=== PATIENT | male | born 1935 | race Caucasian/White ===

== ENCOUNTER 2019-05-26 12:32 | Inpatient (IN) | payer OTHER ==
[2019-05-26 12:54] LABS: ADD MAN DIFF? NO
[2019-05-26] MEDS: morphine 4 MG/ML VIAL IV (12:55)
[2019-05-26] MEDS: ONDANSETRON 4 MG INJ IV (12:55)
[2019-05-26] MEDS: SOD CHLORIDE 0.9% 500 ML IV (12:57)
[2019-05-26 13:04] LABS: BASOPHILS % 0.5 % (0.0-2.0); EOSINOPHILS # 0.1 10^3/ul (0.0-0.5); EOSINOPHILS % 1.7 % (0.0-7.0); HEMOGLOBIN 11.9 g/dl (14.0-18.0); MEAN CORPUSCULAR HGB CONC 31.3 g/dl (32.0-37.0); MEAN CORPUSCULAR VOLUME 92.5 fl (82.0-101.0); MEAN PLATELET VOLUME 10.7 fl (7.4-10.4); MONOCYTE # 0.4 10^3/ul (0.3-0.9); MONOCYTES % 6.3 % (0.0-11.0); NEUTROPHIL # 4.4 10^3/ul (1.6-7.5); NEUTROPHILS % 74.2 % (39.0-77.0); PLATELET COUNT 148 10^3/UL (140-415); RED BLOOD COUNT 4.11 10^6/ul (4.70-6.10); RED CELL DISTRIBUTION WIDTH 14.4 % (11.5-14.5)
[2019-05-26 13:04] LABS: WHITE BLOOD COUNT 5.9 10^3/ul (4.8-10.8)
[2019-05-26 13:15] LABS: ANION GAP 7 (5-13); BLOOD UREA NITROGEN 11 mg/dl (7-20); CALCIUM 9.3 mg/dl (8.4-10.2); CARBON DIOXIDE 31 mmol/L (21-31); CHLORIDE 103 mmol/L (97-110); CREATININE 0.68 mg/dl (0.61-1.24); GLUCOSE 110 mg/dl (70-220); POTASSIUM 4.2 mmol/L (3.5-5.1); SODIUM 141 mmol/L (135-144)
[2019-05-26 13:17] LABS: INR 1.17; PT RATIO 1.2
[2019-05-26 13:18] LABS: PARTIAL THROMBOPLASTIN TIME 35.9 Sec (23.0-35.0)
[2019-05-26 13:27] LABS: TROPONIN-I < 0.012 ng/ml (0.000-0.120)
[2019-05-26] MEDS: niCARdipine-NS 0.1MG/ML DRIP 200 ML IV (15:01)
[2019-05-26] MEDS ORDERED: HYDROCODONE/APAP (5/325) TAB PO (16:30)
[2019-05-26] MEDS ORDERED: hydrALAzine 20 MG INJ IV (16:30)
[2019-05-26] MEDS ORDERED: NACL 0.9% 3 ML SYG IV (16:30)
[2019-05-26] MEDS ORDERED: ONDANSETRON 4 MG INJ IV (16:30)
[2019-05-26 17:20] LABS: HIV 1&2 ANTIBODY REACTIVE (NEGATIVE)
[2019-05-26] MEDS: SOD CHLORIDE 0.9% 1,000 ML IV (17:24)
[2019-05-26] MEDS: MIRTAZAPINE 15 MG TAB PO (21:00)
[2019-05-26] MEDS: ROSUVASTATIN CALCIUM 40 MG TABLET PO (21:00)
[2019-05-26] MEDS ORDERED: MARAVIROC 300 MG PO (21:00)
[2019-05-26] MEDS: CALCIUM/VITAMIN D (500/200) TAB PO (21:00)
[2019-05-26] MEDS: HYDROCODONE/APAP (7.5/325) TAB PO (23:51)
[2019-05-27 05:24] LABS: ADD MAN DIFF? NO
[2019-05-27 05:34] LABS: WHITE BLOOD COUNT 4.7 10^3/ul (4.8-10.8)
[2019-05-27 05:34] LABS: BASOPHILS % 0.6 % (0.0-2.0); EOSINOPHILS # 0.2 10^3/ul (0.0-0.5); EOSINOPHILS % 3.2 % (0.0-7.0); HEMATOCRIT 34.4 % (42.0-52.0); HEMOGLOBIN 10.7 g/dl (14.0-18.0); LYMPHOCYTES # 1.2 10^3/ul (0.8-2.9); LYMPHOCYTES % 25.6 % (15.0-51.0); MEAN CORPUSCULAR HEMOGLOBIN 28.7 pg (29.0-33.0); MEAN CORPUSCULAR HGB CONC 31.1 g/dl (32.0-37.0); MEAN CORPUSCULAR VOLUME 92.2 fl (82.0-101.0); MEAN PLATELET VOLUME 11.1 fl (7.4-10.4); MONOCYTE # 0.4 10^3/ul (0.3-0.9); MONOCYTES % 8.3 % (0.0-11.0); NEUTROPHIL # 2.9 10^3/ul (1.6-7.5); NEUTROPHILS % 61.9 % (39.0-77.0); PLATELET COUNT 122 10^3/UL (140-415); RED BLOOD COUNT 3.73 10^6/ul (4.70-6.10); RED CELL DISTRIBUTION WIDTH 14.6 % (11.5-14.5)
[2019-05-27] MEDS: PANTOPRAZOLE (EC) 40 MG TAB PO (05:51)
[2019-05-27] MEDS: SOD CHLORIDE 0.9% 1,000 ML IV ×2 (05:52→17:27)
[2019-05-27 05:58] LABS: ALANINE AMINOTRANSFERASE 25 IU/L (13-69); ALBUMIN 3.3 g/dl (3.3-4.9); ALBUMIN/GLOBULIN RATIO 1.17; ALKALINE PHOSPHATASE 53 IU/L (42-121); ANION GAP 8 (5-13); ASPARTATE AMINO TRANSFERASE 33 IU/L (15-46); BILIRUBIN,INDIRECT 0.6 mg/dl (0-1.1); BILIRUBIN,TOTAL 0.6 mg/dl (0.2-1.3); BLOOD UREA NITROGEN 11 mg/dl (7-20); CALCIUM 8.4 mg/dl (8.4-10.2); CARBON DIOXIDE 28 mmol/L (21-31); CHLORIDE 104 mmol/L (97-110); CHOL/HDL RATIO 3.1 RATIO; CHOLESTEROL 108 mg/dl (100-200); CREATININE 0.66 mg/dl (0.61-1.24); GLUCOSE 85 mg/dl (70-220); HDL CHOLESTEROL 34 mg/dl (31-75); LDL CHOLESTEROL,CALCULATED 58 mg/dl; MAGNESIUM 1.8 mg/dl (1.7-2.5); PHOSPHORUS 3.4 mg/dl (2.5-4.9); POTASSIUM 3.9 mmol/L (3.5-5.1); SODIUM 140 mmol/L (135-144); TOTAL PROTEIN 6.1 g/dl (6.1-8.1); TRIGLYCERIDES 78 mg/dl (0-149)
[2019-05-27 06:25] LABS: THYROID STIMULATING HORMONE 0.321 MIU/L (0.465-4.680)
[2019-05-27 06:51] LABS: HEMOGLOBIN A1C 5.5 % (0-5.9)
[2019-05-27] MEDS ORDERED: NON-FORMULARY/PATIENT OWN MED (Dolutegravir/Rilpivirine (Juluca 50-25 mg Tablet) 1 EACH) PO (09:00)
[2019-05-27] MEDS: CHOLECALCIFEROL 1,000 UNIT TAB PO (09:00)
[2019-05-27] MEDS: MULTIVITAMINS THERAPEUTIC TAB PO (09:00)
[2019-05-27] MEDS: CALCIUM/VITAMIN D (500/200) TAB PO ×2 (09:00→20:53)
[2019-05-27] MEDS: ACYCLOVIR 400 MG TAB PO (09:00)
[2019-05-27] MEDS: HYDROmorphONE 0.5 MG/0.5 ML SYG IV ×2 (12:51→23:22)
[2019-05-27] MEDS: MIRTAZAPINE 15 MG TAB PO (20:53)
[2019-05-27] MEDS: ROSUVASTATIN CALCIUM 40 MG TABLET PO (20:53)
[2019-05-27 21:31] LABS: ANION GAP 8 (5-13); BLOOD UREA NITROGEN 16 mg/dl (7-20); CALCIUM 8.4 mg/dl (8.4-10.2); CARBON DIOXIDE 30 mmol/L (21-31); CHLORIDE 99 mmol/L (97-110); CREATININE 0.72 mg/dl (0.61-1.24); GLUCOSE 166 mg/dl (70-220); MAGNESIUM 1.8 mg/dl (1.7-2.5); POTASSIUM 4.3 mmol/L (3.5-5.1); SODIUM 137 mmol/L (135-144)
[2019-05-27] MEDS: HYDROCODONE/APAP (7.5/325) TAB PO (21:36)
[2019-05-28 05:39] LABS: ADD MAN DIFF? NO
[2019-05-28 05:45] LABS: WHITE BLOOD COUNT 5.6 10^3/ul (4.8-10.8)
[2019-05-28 05:45] LABS: BASOPHILS % 0.4 % (0.0-2.0); EOSINOPHILS # 0.2 10^3/ul (0.0-0.5); HEMATOCRIT 34.4 % (42.0-52.0); HEMOGLOBIN 10.9 g/dl (14.0-18.0); LYMPHOCYTES % 18.5 % (15.0-51.0); MEAN CORPUSCULAR HEMOGLOBIN 29.2 pg (29.0-33.0); MEAN CORPUSCULAR HGB CONC 31.7 g/dl (32.0-37.0); MEAN CORPUSCULAR VOLUME 92.2 fl (82.0-101.0); MEAN PLATELET VOLUME 10.7 fl (7.4-10.4); MONOCYTE # 0.6 10^3/ul (0.3-0.9); MONOCYTES % 10.4 % (0.0-11.0); NEUTROPHIL # 3.8 10^3/ul (1.6-7.5); NEUTROPHILS % 67.5 % (39.0-77.0); PLATELET COUNT 126 10^3/UL (140-415); POSITIVE DIFF @See below; RED BLOOD COUNT 3.73 10^6/ul (4.70-6.10); RED CELL DISTRIBUTION WIDTH 14.1 % (11.5-14.5)
[2019-05-28] MEDS: SOD CHLORIDE 0.9% 1,000 ML IV (05:58)
[2019-05-28] MEDS: PANTOPRAZOLE (EC) 40 MG TAB PO (05:59)
[2019-05-28 06:04] LABS: INR 1.28; PROTIME 16.1 Sec (11.9-14.9); PT RATIO 1.3
[2019-05-28 06:05] LABS: PARTIAL THROMBOPLASTIN TIME 39.8 Sec (23.0-35.0)
[2019-05-28 06:22] LABS: ANION GAP 7 (5-13); BLOOD UREA NITROGEN 19 mg/dl (7-20); CALCIUM 8.2 mg/dl (8.4-10.2); CARBON DIOXIDE 32 mmol/L (21-31); CHLORIDE 100 mmol/L (97-110); CREATININE 0.79 mg/dl (0.61-1.24); GLUCOSE 118 mg/dl (70-220); MAGNESIUM 1.8 mg/dl (1.7-2.5); POTASSIUM 4.3 mmol/L (3.5-5.1); SODIUM 139 mmol/L (135-144)
[2019-05-28] MEDS: HYDROCODONE/APAP (7.5/325) TAB PO (08:12)
[2019-05-28] MEDS: CALCIUM/VITAMIN D (500/200) TAB PO ×2 (08:44→21:00)
[2019-05-28] MEDS: CHOLECALCIFEROL 1,000 UNIT TAB PO (08:44)
[2019-05-28] MEDS: MULTIVITAMINS THERAPEUTIC TAB PO (08:44)
[2019-05-28] MEDS: ACYCLOVIR 400 MG TAB PO (08:44)
[2019-05-28] MEDS ORDERED: TRANEXAMIC ACID 1GM/100ML(PMX) 200 ML (13:58)
[2019-05-28 14:20] LABS: LYMPHOCYTE - % CD4 (HELPER) 36 % (30-61); LYMPHOCYTE - %CD8 (SUPPRESSOR) 49 % (12-42); LYMPHOCYTE - ABSOLUTE 1150 cells/uL (850-3900); LYMPHOCYTE - ABSOLUTE CD4 417 cells/uL (490-1740); LYMPHOCYTE - ABSOLUTE CD8 562 cells/uL (180-1170); LYMPHOCYTE - CD4/CD8 RATIO 0.74 (0.86-5.00)
[2019-05-28] MEDS ORDERED: PROPOFOL 100 ML (14:32)
[2019-05-28] MEDS ORDERED: CEFAZOLIN 1 GM INJ (14:32)
[2019-05-28] MEDS ORDERED: FENTAnyl 50 MCG/ML VIAL (14:32)
[2019-05-28] MEDS ORDERED: PHENYLephrine (100 MCG/ML) 10ML SYG (14:32)
[2019-05-28 16:06] LABS: IMMEDIATE SPIN CROSSMATCH 1 3
[2019-05-28] MEDS ORDERED: METOCLOPRAMIDE 10 MG INJ (16:27)
[2019-05-28] MEDS ORDERED: DEXAMETHASONE 4 MG/ML 5 ML INJ (16:27)
[2019-05-28] MEDS ORDERED: ONDANSETRON 4 MG INJ (16:27)
[2019-05-28] MEDS ORDERED: ROPIVACAINE 0.5 % 30 ML VIAL (16:39)
[2019-05-28] MEDS ORDERED: hydrALAzine 20 MG INJ (16:54)
[2019-05-28] MEDS ORDERED: FUROSEMIDE 20 MG INJ (17:45)
[2019-05-28] MEDS ORDERED: NALBUPHINE HCL (10 MG/1 ML) INJ IV (18:30)
[2019-05-28] MEDS ORDERED: HYDROCODONE/APAP (5/325) TAB PO (18:30)
[2019-05-28] MEDS ORDERED: DIPHENHYDRAMINE 50 MG INJ IV ×3 (18:30)
[2019-05-28] MEDS ORDERED: IPRATROPIUM (NEB) 0.5 MG/2.5 ML AMP HHN (18:30)
[2019-05-28] MEDS ORDERED: METOCLOPRAMIDE 10 MG INJ IV (18:30)
[2019-05-28] MEDS ORDERED: ALBUTEROL 0.083% (NEB) 2.5 MG/3 ML AMP HHN (18:30)
[2019-05-28] MEDS ORDERED: LABETALOL HCL 20MG INJ IV (18:30)
[2019-05-28] MEDS ORDERED: hydrALAzine 20 MG INJ IV (18:30)
[2019-05-28] MEDS ORDERED: NALOXONE (0.4 MG/ML) INJ IV ×2 (18:30→19:00)
[2019-05-28] MEDS ORDERED: ALBUMIN HUMAN 5% 250 ML IV (18:30)
[2019-05-28] MEDS ORDERED: ACETAMINOPHEN 500 MG TAB PO (18:30)
[2019-05-28] MEDS ORDERED: HYDROmorphONE 0.5 MG/0.5 ML SYG IV ×5 (18:30)
[2019-05-28] MEDS ORDERED: FENTAnyl 50 MCG/ML VIAL IV ×3 (18:30)
[2019-05-28] MEDS ORDERED: MEPERIDINE 25 MG INJ IV (18:30)
[2019-05-28] MEDS ORDERED: EPHEDrine 25 MG/5 ML SYG IV (18:30)
[2019-05-28] MEDS ORDERED: ONDANSETRON 4 MG INJ IV ×2 (18:30)
[2019-05-28] MEDS ORDERED: MEPERIDINE 25 MG INJ (18:40)
[2019-05-28] MEDS: DOCUSATE SODIUM 100 MG CAP PO (19:00)
[2019-05-28] MEDS ORDERED: BETHANECHOL 25 MG TAB PO (19:00)
[2019-05-28] MEDS ORDERED: NACL 0.9% 3 ML SYG IV (19:00)
[2019-05-28] MEDS ORDERED: BISACODYL 10 MG SUPP PR (19:00)
[2019-05-28] MEDS ORDERED: HYDROmorphONE 1 MG/ML SYG IV (19:00)
[2019-05-28] MEDS ORDERED: NA PHOSPHATE/BIPHOS 133 ML ENEMA PR (19:00)
[2019-05-28] MEDS ORDERED: oxyCODONE 5 MG TAB PO (19:00)
[2019-05-28] MEDS: MEPERIDINE 25 MG INJ IV (19:18)
[2019-05-28] MEDS: LACTATED RINGER'S 1,000 ML IV (19:20)
[2019-05-28] MEDS: ROSUVASTATIN CALCIUM 40 MG TABLET PO (21:00)
[2019-05-28] MEDS: MIRTAZAPINE 15 MG TAB PO (21:00)
[2019-05-28] MEDS: GABAPENTIN 300 MG CAP PO (21:00)
[2019-05-28] MEDS: ACETAMINOPHEN 500 MG TAB PO (22:00)
[2019-05-28] MEDS: CEFAZOLIN 2 GM/50 ML (PMX) 50 ML IVPB (22:02)
[2019-05-28] MEDS: ACETAMINOPHEN 650 MG SUPP PR (22:14)
[2019-05-29] MEDS: LACTATED RINGER'S 1,000 ML IV ×2 (03:59→14:42)
[2019-05-29] MEDS: ACETAMINOPHEN 650 MG SUPP PR ×2 (04:34→10:02)
[2019-05-29 04:57] LABS: ADD MAN DIFF? NO
[2019-05-29 05:08] LABS: ABNORMAL IP MESSAGE 1; HEMATOCRIT 30.2 % (42.0-52.0); HEMOGLOBIN 9.7 g/dl (14.0-18.0); LYMPHOCYTES # 0.3 10^3/ul (0.8-2.9); LYMPHOCYTES % 6.8 % (15.0-51.0); MEAN CORPUSCULAR HGB CONC 32.1 g/dl (32.0-37.0); MEAN CORPUSCULAR VOLUME 93.5 fl (82.0-101.0); MEAN PLATELET VOLUME 11.6 fl (7.4-10.4); MONOCYTE # 0.1 10^3/ul (0.3-0.9); MONOCYTES % 2.8 % (0.0-11.0); NEUTROPHIL # 4.1 10^3/ul (1.6-7.5); PLATELET COUNT 96 10^3/UL (140-415); POSITIVE DIFF @See below; RED BLOOD COUNT 3.23 10^6/ul (4.70-6.10)
[2019-05-29 05:08] LABS: WHITE BLOOD COUNT 4.6 10^3/ul (4.8-10.8)
[2019-05-29 05:22] LABS: INR 1.35; PROTIME 16.8 Sec (11.9-14.9); PT RATIO 1.3
[2019-05-29 05:31] LABS: ANION GAP 4 (5-13); BLOOD UREA NITROGEN 13 mg/dl (7-20); CALCIUM 7.2 mg/dl (8.4-10.2); CARBON DIOXIDE 29 mmol/L (21-31); CHLORIDE 108 mmol/L (97-110); CREATININE 0.56 mg/dl (0.61-1.24); GLUCOSE 146 mg/dl (70-220); SODIUM 141 mmol/L (135-144)
[2019-05-29] MEDS: PANTOPRAZOLE (EC) 40 MG TAB PO (06:00)
[2019-05-29] MEDS: ACETAMINOPHEN 500 MG TAB PO ×3 (06:00→22:00)
[2019-05-29] MEDS: CEFAZOLIN 2 GM/50 ML (PMX) 50 ML IVPB ×2 (06:22→14:55)
[2019-05-29] MEDS: DOCUSATE SODIUM 100 MG CAP PO ×2 (09:00→21:04)
[2019-05-29] MEDS: CHOLECALCIFEROL 1,000 UNIT TAB PO (09:00)
[2019-05-29] MEDS: CALCIUM/VITAMIN D (500/200) TAB PO ×2 (09:00→21:04)
[2019-05-29] MEDS: ACYCLOVIR 400 MG TAB PO (09:00)
[2019-05-29] MEDS: MULTIVITAMINS THERAPEUTIC TAB PO (09:00)
[2019-05-29] MEDS: MAGNESIUM SULFATE 2 GM/50 ML 50 ML IVPB (09:47)
[2019-05-29] MEDS ORDERED: ONDANSETRON 4 MG INJ IV (19:00)
[2019-05-29] MEDS: ROSUVASTATIN CALCIUM 40 MG TABLET PO (21:04)
[2019-05-29] MEDS: MIRTAZAPINE 15 MG TAB PO (21:04)
[2019-05-29] MEDS: GABAPENTIN 300 MG CAP PO (21:04)
[2019-05-30] MEDS: LACTATED RINGER'S 1,000 ML IV ×2 (03:03→10:42)
[2019-05-30] MEDS: PANTOPRAZOLE (EC) 40 MG TAB PO (05:40)
[2019-05-30] MEDS: ACETAMINOPHEN 500 MG TAB PO ×3 (05:42→22:16)
[2019-05-30 06:35] LABS: ADD MAN DIFF? NO
[2019-05-30 06:47] LABS: ABNORMAL IP MESSAGE 1; BASOPHILS % 0.2 % (0.0-2.0); EOSINOPHILS % 0.2 % (0.0-7.0); HEMATOCRIT 29.2 % (42.0-52.0); HEMOGLOBIN 9.3 g/dl (14.0-18.0); LYMPHOCYTES # 0.8 10^3/ul (0.8-2.9); LYMPHOCYTES % 16.8 % (15.0-51.0); MEAN CORPUSCULAR HEMOGLOBIN 29.3 pg (29.0-33.0); MEAN CORPUSCULAR HGB CONC 31.8 g/dl (32.0-37.0); MEAN CORPUSCULAR VOLUME 92.1 fl (82.0-101.0); MEAN PLATELET VOLUME 11.7 fl (7.4-10.4); MONOCYTE # 0.4 10^3/ul (0.3-0.9); MONOCYTES % 8.5 % (0.0-11.0); NEUTROPHIL # 3.7 10^3/ul (1.6-7.5); NEUTROPHILS % 73.9 % (39.0-77.0); PLATELET COUNT 96 10^3/UL (140-415); POSITIVE DIFF @See below; RED BLOOD COUNT 3.17 10^6/ul (4.70-6.10); RED CELL DISTRIBUTION WIDTH 14.2 % (11.5-14.5)
[2019-05-30 07:03] LABS: ANION GAP 2 (5-13); BLOOD UREA NITROGEN 15 mg/dl (7-20); CALCIUM 7.7 mg/dl (8.4-10.2); CARBON DIOXIDE 32 mmol/L (21-31); CHLORIDE 107 mmol/L (97-110); CREATININE 0.54 mg/dl (0.61-1.24); GLUCOSE 130 mg/dl (70-220); SODIUM 141 mmol/L (135-144)
[2019-05-30 07:06] LABS: INR 1.36; PROTIME 16.9 Sec (11.9-14.9); PT RATIO 1.3
[2019-05-30 07:24] LABS: PHOSPHORUS 1.5 mg/dl (2.5-4.9)
[2019-05-30 07:24] LABS: MAGNESIUM 2.3 mg/dl (1.7-2.5)
[2019-05-30] MEDS: ACETAMINOPHEN 325 MG TAB PO (08:42)
[2019-05-30] MEDS: DOCUSATE SODIUM 100 MG CAP PO ×2 (08:43→21:13)
[2019-05-30] MEDS: ACYCLOVIR 400 MG TAB PO (08:43)
[2019-05-30] MEDS: MAGNESIUM HYDROXIDE 30ML CUP PO (08:43)
[2019-05-30] MEDS: SENNA/DOCUSATE NA (8.6MG/50MG) TAB PO (08:43)
[2019-05-30] MEDS: MULTIVITAMINS THERAPEUTIC TAB PO (08:43)
[2019-05-30] MEDS: CHOLECALCIFEROL 1,000 UNIT TAB PO (08:43)
[2019-05-30] MEDS: CALCIUM/VITAMIN D (500/200) TAB PO ×2 (08:43→21:14)
[2019-05-30] MEDS: PATIENT'S OWN MEDICATION PO ×3 (08:44→21:12)
[2019-05-30] MEDS: SOD CHLORIDE 0.45% 1,000 ML IV (13:04)
[2019-05-30] MEDS: SOD CHLORIDE 0.9% IVPB (15:39)
[2019-05-30] MEDS: SODIUM PHOSPHATE IVPB (15:39)
[2019-05-30] MEDS: ROSUVASTATIN CALCIUM 40 MG TABLET PO (21:13)
[2019-05-30] MEDS: MIRTAZAPINE 15 MG TAB PO (21:14)
[2019-05-30] MEDS: GABAPENTIN 300 MG CAP PO (21:17)
[2019-05-30] MEDS: DIAZEPAM 5 MG TAB PO (23:11)
[2019-05-31] MEDS: oxyCODONE 5 MG TAB PO ×3 (01:00→14:29)
[2019-05-31] MEDS: HYDROmorphONE 0.5 MG/0.5 ML SYG IV ×2 (02:56→22:12)
[2019-05-31] MEDS: SOD CHLORIDE 0.45% 1,000 ML IV ×2 (05:10→14:17)
[2019-05-31] MEDS: ACETAMINOPHEN 500 MG TAB PO ×3 (06:00→23:08)
[2019-05-31 06:56] LABS: ADD MAN DIFF? NO
[2019-05-31 06:58] LABS: WHITE BLOOD COUNT 4.6 10^3/ul (4.8-10.8)
[2019-05-31 06:58] LABS: ABNORMAL IP MESSAGE 1; BASOPHILS % 0.4 % (0.0-2.0); EOSINOPHILS # 0.1 10^3/ul (0.0-0.5); EOSINOPHILS % 2.2 % (0.0-7.0); HEMATOCRIT 28.8 % (42.0-52.0); HEMOGLOBIN 9.3 g/dl (14.0-18.0); LYMPHOCYTES # 1.3 10^3/ul (0.8-2.9); LYMPHOCYTES % 27.9 % (15.0-51.0); MEAN CORPUSCULAR HEMOGLOBIN 30.1 pg (29.0-33.0); MEAN CORPUSCULAR HGB CONC 32.3 g/dl (32.0-37.0); MEAN CORPUSCULAR VOLUME 93.2 fl (82.0-101.0); MEAN PLATELET VOLUME 11.4 fl (7.4-10.4); MONOCYTE # 0.4 10^3/ul (0.3-0.9); MONOCYTES % 7.8 % (0.0-11.0); NEUTROPHIL # 2.9 10^3/ul (1.6-7.5); NEUTROPHILS % 61.5 % (39.0-77.0); PLATELET COUNT 90 10^3/UL (140-415); POSITIVE DIFF @See below; RED BLOOD COUNT 3.09 10^6/ul (4.70-6.10); RED CELL DISTRIBUTION WIDTH 14.3 % (11.5-14.5)
[2019-05-31 07:20] LABS: INR 1.24; PROTIME 15.7 Sec (11.9-14.9); PT RATIO 1.2
[2019-05-31 07:24] LABS: ANION GAP 4 (5-13); BLOOD UREA NITROGEN 13 mg/dl (7-20); CALCIUM 7.7 mg/dl (8.4-10.2); CARBON DIOXIDE 32 mmol/L (21-31); CHLORIDE 106 mmol/L (97-110); CREATININE 0.54 mg/dl (0.61-1.24); GLUCOSE 107 mg/dl (70-220); POTASSIUM 3.8 mmol/L (3.5-5.1); SODIUM 142 mmol/L (135-144)
[2019-05-31 07:30] LABS: PHOSPHORUS 2.6 mg/dl (2.5-4.9)
[2019-05-31 07:30] LABS: MAGNESIUM 1.9 mg/dl (1.7-2.5)
[2019-05-31] MEDS: ACYCLOVIR 400 MG TAB PO (08:36)
[2019-05-31] MEDS: FAMOTIDINE 20 MG TAB PO (08:36)
[2019-05-31] MEDS: DOCUSATE SODIUM 100 MG CAP PO ×2 (08:36→21:00)
[2019-05-31] MEDS: MULTIVITAMINS THERAPEUTIC TAB PO (08:36)
[2019-05-31] MEDS: CALCIUM/VITAMIN D (500/200) TAB PO ×2 (08:36→21:00)
[2019-05-31] MEDS: CHOLECALCIFEROL 1,000 UNIT TAB PO (08:36)
[2019-05-31] MEDS: PATIENT'S OWN MEDICATION PO ×3 (08:37→21:04)
[2019-05-31] MEDS: SENNA/DOCUSATE NA (8.6MG/50MG) TAB PO (11:39)
[2019-05-31] MEDS: HEPARIN 5,000 UNIT/1 ML VIAL SC ×2 (11:42→21:16)
[2019-05-31] MEDS: MIRTAZAPINE 15 MG TAB PO (21:00)
[2019-05-31] MEDS: GABAPENTIN 300 MG CAP PO (21:00)
[2019-05-31] MEDS: ROSUVASTATIN CALCIUM 40 MG TABLET PO (21:00)
[2019-05-31] MEDS: ZOLPIDEM 5 MG TAB PO (23:07)
[2019-06-01] MEDS: ACETAMINOPHEN 500 MG TAB PO ×2 (06:00→14:11)
[2019-06-01 06:39] LABS: ADD MAN DIFF? NO
[2019-06-01 06:44] LABS: ABNORMAL IP MESSAGE 1; BASOPHILS % 0.7 % (0.0-2.0); EOSINOPHILS # 0.2 10^3/ul (0.0-0.5); EOSINOPHILS % 3.6 % (0.0-7.0); HEMATOCRIT 30.4 % (42.0-52.0); HEMOGLOBIN 9.6 g/dl (14.0-18.0); LYMPHOCYTES # 1.3 10^3/ul (0.8-2.9); LYMPHOCYTES % 29.6 % (15.0-51.0); MEAN CORPUSCULAR HEMOGLOBIN 29.4 pg (29.0-33.0); MEAN CORPUSCULAR HGB CONC 31.6 g/dl (32.0-37.0); MEAN CORPUSCULAR VOLUME 93.3 fl (82.0-101.0); MEAN PLATELET VOLUME 11.4 fl (7.4-10.4); MONOCYTE # 0.3 10^3/ul (0.3-0.9); MONOCYTES % 6.5 % (0.0-11.0); NEUTROPHIL # 2.6 10^3/ul (1.6-7.5); NEUTROPHILS % 59.1 % (39.0-77.0); PLATELET COUNT 98 10^3/UL (140-415); POSITIVE DIFF @See below; RED BLOOD COUNT 3.26 10^6/ul (4.70-6.10)
[2019-06-01 06:44] LABS: WHITE BLOOD COUNT 4.4 10^3/ul (4.8-10.8)
[2019-06-01 07:03] LABS: INR 1.16; PROTIME 14.9 Sec (11.9-14.9); PT RATIO 1.2
[2019-06-01 07:05] LABS: PHOSPHORUS 3.1 mg/dl (2.5-4.9)
[2019-06-01 07:05] LABS: MAGNESIUM 1.8 mg/dl (1.7-2.5)
[2019-06-01 07:10] LABS: ANION GAP 3 (5-13); BLOOD UREA NITROGEN 11 mg/dl (7-20); CALCIUM 8.2 mg/dl (8.4-10.2); CARBON DIOXIDE 34 mmol/L (21-31); CHLORIDE 104 mmol/L (97-110); CREATININE 0.53 mg/dl (0.61-1.24); GLUCOSE 106 mg/dl (70-220); POTASSIUM 4.2 mmol/L (3.5-5.1); SODIUM 141 mmol/L (135-144)
[2019-06-01] MEDS: SOD CHLORIDE 0.45% 1,000 ML IV (07:17)
[2019-06-01] MEDS: PATIENT'S OWN MEDICATION PO ×2 (08:55)
[2019-06-01] MEDS: MULTIVITAMINS THERAPEUTIC TAB PO (08:56)
[2019-06-01] MEDS: CALCIUM/VITAMIN D (500/200) TAB PO (08:56)
[2019-06-01] MEDS: FAMOTIDINE 20 MG TAB PO (08:56)
[2019-06-01] MEDS: CHOLECALCIFEROL 1,000 UNIT TAB PO (08:56)
[2019-06-01] MEDS: ACYCLOVIR 400 MG TAB PO (08:56)
[2019-06-01] MEDS: HEPARIN 5,000 UNIT/1 ML VIAL SC (08:57)
== END 2019-06-01 19:37 | DRG 956 ==
LOC: TEL 05-29 16:15 → E/R 12:32 → ICU 14:10
PROC: 0SRS039 Replacement of Left Hip Joint, Femoral Surface with Ceramic Synthetic Substitute, Cemented, Open Approach (ICD-10-PCS; principal; 2019-05-28 14:41)
DX: S72.002A Fracture of unspecified part of neck of left femur, initial encounter for closed fracture (principal); S06.5X9A Traumatic subdural hemorrhage with loss of consciousness of unspecified duration, initial encounter; E78.5 Hyperlipidemia, unspecified; G89.29 Other chronic pain; M54.5 Low back pain; M81.0 Age-related osteoporosis without current pathological fracture; I48.91 Unspecified atrial fibrillation; I25.10 Atherosclerotic heart disease of native coronary artery without angina pectoris; I10 Essential (primary) hypertension; R50.9 Fever, unspecified; W06.XXXA Fall from bed, initial encounter; Y92.003 Bedroom of unspecified non-institutional (private) residence as the place of occurrence of the external cause; Z95.2 Presence of prosthetic heart valve; Z95.1 Presence of aortocoronary bypass graft
CPT/HCPCS: 36415; 36430; 70450; 71045; 72170; 73500; 73510; 73530; 80048; 80053; 80061; 83036; 83735; 84100; 84443; 84484; 85025; 85610; 85730; 86360; 86701; 86703; 86850; 86900; 86901; 86920; 87040-91; 87081; 87536; 88305; 88311; 93005; 93306; 96361; 96374; 96375; 97116; 97162; 97165; 97530; 97535; 99285-25